=== PATIENT | male | born 1990 | race Hispanic/Latino ===

== ENCOUNTER 2020-06-02 00:12 | Emergency (ER) | payer SELFPAY ==
[2020-06-02] MEDS ORDERED: diphenhydrAMINE 50 MG/ML VIAL ONE (01:04)
[2020-06-02] MEDS ORDERED: Ketorolac Tromethamine 30 MG/ML VIAL ONE (01:04)
[2020-06-02] MEDS ORDERED: Metoclopramide HCl 10 MG/2 ML VIAL ONE (01:04)
== END 2020-06-02 02:03 | disposition home or self-care (01) ==
LOC: ERS 00:12
DX: R51 Headache (principal)
CPT/HCPCS: 96365; 96375; J1200; J1885; J2765